=== PATIENT | female | born 1995 | race Two or more races ===

== ENCOUNTER → 2020-06-30 | Outpatient (CLI) | payer BC ==
[~2020-06-30] MED LIST: DOCU100C16 PO; IBUP80TA PO; PRENTAB53 PO; PROC1CRE5 TOP
[2020-06-30 13:27] LABS: HEMATOCRIT 34.4 % (36.0-47.0); HEMOGLOBIN 11.4 g/dl (12.0-15.5); MEAN CORPUSCULAR HEMOGLOBIN 30.4 pg (27.0-33.0); MEAN CORPUSCULAR HGB CONC 33.1 g/dl (32.0-36.5); MEAN CORPUSCULAR VOLUME 91.7 fl (80.0-96.0); PLATELET COUNT, AUTOMATED 229 10^3/uL (150-450); RED BLOOD COUNT 3.75 10^6/uL (4.00-5.40); WHITE BLOOD COUNT 5.8 10^3/uL (4.0-10.0)
== END ==
LOC: M PLALAB 10:15
PROVIDERS: ATTEND Advanced Practice Midwife
DX: Z34.83 Encounter for supervision of other normal pregnancy, third trimester (principal); Z3A.00 Weeks of gestation of pregnancy not specified

== ENCOUNTER 2020-07-22 07:14 | Inpatient (IN) | payer BC ==
[2020-07-22] VITALS (19 sets, daily range): BP systolic 122–154; BP diastolic 69–90
[~2020-07-22] VITALS: Ht 154.9 cm; Wt 74.9 kg
[2020-07-22] MEDS ORDERED: PRENTAB53 PO (07:28)
[2020-07-22] MEDS ORDERED: LACTATED RINGER'S 1000 ML IV STA (08:30)
[2020-07-22] MEDS ORDERED: PENICILLIN G POTASSIUM IV 5 MU in D5W MINI-BAG PLUS 100 ML IV STA ×2 (08:30→09:41)
[2020-07-22 09:27] LABS: HEMOGLOBIN 12.2 g/dl (12.0-15.5); MEAN CORPUSCULAR HEMOGLOBIN 29.5 pg (27.0-33.0); MEAN CORPUSCULAR VOLUME 89.6 fl (80.0-96.0); PLATELET COUNT, AUTOMATED 221 10^3/uL (150-450); RED BLOOD COUNT 4.13 10^6/uL (4.00-5.40)
--- NOTE | 2020-07-22 09:47 | HPEPDOC ---
Obstetrical History & Physical General Date of Admission 07/22/2020 History of Present Illness Chief Complaint: Contractions, term (mild, irregular), LOF, term (Clear fluid started leaking at 2300) Information Provided By: Patient Age: 25 : 1 Term: 0 Pre-term: 0 Abortions: 0 Livin Care Care: Good Care Dating Final EDC: Jul 26, 2020 Final EDC by: 1st trimester (US) LMP: Oct 12, 2019 1st Trimester Date: Dec 17, 2019 Weeks + Days: 8.2 EGA at Admission: 39.3 Antepartum Course Height (inches): 61 Pre- weight (lbs.): 141 Admission Weight (lbs.): 165 Change in Weight (lbs.): 24 Past Medical History Past Obstetrical History : Past Obstetrical History: Primgravida Complications: No (transfer of care from [place] @ 33 weeks) 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 Past Medical History Medical History Denies Surgical History: Denies/None Family History Significant Family History: Diabetes (Father and Mother), Hypertension (Father) Social History Marital Status: Family situation: Spouse/partner home Psychosocial History: No pertinent psych hx * Smoker: non-smoker Alcohol: Denies Drugs: denies Imunizations Tdap status: current Allergies Coded Allergies: No Known Allergies (Verified Allergy, Unknown, 07/22/20) Medications Scheduled Vit,Calc76/Iron/Folic (Prenatabs Rx Tablet) 1 Each Tablet, 1 TAB PO DAILY Physical Examination Physical Examination GENERAL: Alert and oriented times three. BREAST: . ABDOMEN: Gravid and non-tender to touch. FETUS: Is vertex (VTX) by sterile vaginal examination (SVE), fetus is vertex (VTX) by [place]. EFW 7-7.5lbs by Ambrosio. HEART RATE: Regular rate and rhythm. LUNGS: Clear to auscultation (CTA). EXTREMITIES: No edema. No clonus. Deep tendon reflexes (DTRs) + 2. Vital Signs/I&O Vital Signs Date Time Temp Pulse Resp B/P (MAP) Pulse Ox O2 Delivery O2 Flow Rate FiO2 07/22/20 07:35 98.7 100 18 144/90 (108) Pertinent Laboratoy Data Blood Type: B+ RBC Antibody Screen: Negative HIV: Negative Hepatitis B: Negative Rapid Plasma Reagin: Nonreactive Rubella: Immune Varicella: Unknown Chlamydia/Gonorrhea: Unknown (Deferred by previous practice due to risk based screening) Group B Streptococcus: Positive Cystic Fibrosis: Negative Glucose Tolerance Test: 127 Diag/Inter Therapy Hemoglobin Electrophoresis: AA Anatomy Ultrasound Ultrasound Date: Mar 11, 2020 Placenta Location: Fundal Normal Anatomy: Yes Placenta Previa: No Steroid Therapy Steroid Therapy: No Vaginal Examination Dilation: 1cm Effacement: 70% Station: -2 Cervical Consistency: Soft Cervical Position: Posterior Presentation: Cephalic presentation Position: Vertex (occiput) Assessment Heart Rate (FHR): 140 Variability: Moderate Accelerations: Positive Decelerations: None Tocometer Contractions: Yes Frequency: irregular, less than 9 min/apart Duration: greater than 60 seconds Strength: palpated as mild Multi-drug resistant Organism: No history of MDRO Assessment/Plan Assessment Janette is a 25-year-old (G)1 para (P)0-0-0-0 at 39+3 weeks by 8-week ultrasound. Presents to Labor and Delivery (L&D) with spontaneous PROM at 2300 on 07/21/20, mild, irregular contractions, and a moderate amount of bloody show. Sterile speculum exam showed a moderate amount of bloody show, no pooling or fluid leaking from cervix on valsalva. Ferning was positive on slide. SVE 1-2//-2 by REJI Lopez with informed consent. 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 Diet: Clear liquid. Group B Streptococcus (GBS) postive, penicillin in labor for prophylaxis. Labs and intravenous (IV) per unit protocol. Counseled on Pitocin and induction of labor (IOL). Plans for an unmedicated , but open to epidural if needed. Lactated Ringers (LR): Bolus 500 mL, then saline lock. Anticipate normal spontaneous delivery (). C-S as appropriate. Rita Raymundo CNM Jul 22, 2020 08:56
--- NOTE | 2020-07-22 11:06 | IPNPDOC ---
Text Note Date of Service The patient was seen on 07/22/20. NOTE Progress Contractions becoming less regular. Cat I tracing GBS prophylaxis has started. Start pitocin augmentation VS,Fishbone, I+O VS, Fishbone, I+O Laboratory Tests 07/22/20 09:11 Vital Signs Date Time Temp Pulse Resp B/P (MAP) Pulse Ox O2 Delivery O2 Flow Rate FiO2 07/22/20 07:35 98.7 100 18 144/90 (108) Rita Raymundo CNM Jul 22, 2020 11:06
[2020-07-22] MEDS ORDERED: OXYTOCIN DRIP 30 UNITS in IV 1 EA IV SCH (11:15)
[2020-07-22] MEDS ORDERED: PENICILLIN G POTASSIUM IV 2.5 MU in IV 1 EA IV SCH (12:30)
[2020-07-22] MEDS: LR 1,000 ML IV SCH ×2 (13:19→17:20)
[2020-07-22] MEDS: PENICILLIN G POTASSIUM IV 2.5 MU in IV 1 EA IV SCH ×3 (13:55→23:08)
--- NOTE | 2020-07-22 15:20 | IPNPDOC ---
Text Note Date of Service The patient was seen on 07/22/20. NOTE Patient reports feeling more intense and frequent contractions. Some dark b loody show noted by patient. Pitocin running at 4mu/min, Penicillin dose #2 infusing. Category 1 FHT, FHR 145bpm. UC every 4-5min, 90-110sec. mild on palpation. SVE 1-2/80/-2, posterior, soft by REJI Hemphill; bloody show noted on gloves. Risks, benefits, and alternatives to cooks catheter discussed and informed consent received for placement. Cook's catheter placed Uterine 60mL and Vaginal 40mL of NS. Anticipate vaginal delivery. VS,Fishbone, I+O VS, Fishbone, I+O Laboratory Tests 07/22/20 09:11 Vital Signs Date Time Temp Pulse Resp B/P (MAP) Pulse Ox O2 Delivery O2 Flow Rate FiO2 07/22/20 14:23 93 124/73 (90) 07/22/20 13:53 98.6 16 Rita Raymundo CNM Jul 22, 2020 15:20
[2020-07-22] MEDS ORDERED: FENTANYL 2MCG/ML ROPIVACAINE 0.2% IN 0.9% NACL 100ML IVBAG As Ordered ONE (16:52)
--- NOTE | 2020-07-22 18:27 | IPNPDOC ---
Text Note Date of Service The patient was seen on 07/22/20. NOTE Inpatient Pain well controlled with epidural. Pitocin at 10mu/min. Cat 1 FHT, 145bpm baseline. UC every 3-4 min., 60-90 seconds long, palpate moderate SVE 5-6/90/-1, soft, anterior by REJI Lopez. AROM for moderate amount of clear fluid. Continue with pitocin. Anticipate vaginal delivery. VS,Fishbone, I+O VS, Fishbone, I+O Laboratory Tests 07/22/20 09:11 Vital Signs Date Time Temp Pulse Resp B/P (MAP) Pulse Ox O2 Delivery O2 Flow Rate FiO2 07/22/20 14:23 93 124/73 (90) 07/22/20 13:53 98.6 16 Rita Raymundo CNM Jul 22, 2020 18:27
[2020-07-22] MEDS ORDERED: NALOXONE INJ 0.4MG/1ML VIAL (J2310 PER 1MG) IV PRN (18:30)
[2020-07-22] MEDS ORDERED: FENTANYL/ROPIVACAINE/NACL BAG 100 ML EPIDURAL SCH (18:30)
[2020-07-22] MEDS ORDERED: EPIDURAL COMMENT XX SCH (18:30)
[2020-07-22] MEDS ORDERED: EPIDURAL/PCA KEYS XX PRN (18:30)
[2020-07-22] MEDS ORDERED: diphenhydrAMINE 50MG/ML VIAL (J1200) IV PRN (18:30)
[2020-07-22] MEDS ORDERED: LACTATED RINGER'S 1000 ML IV PRN (18:30)
[2020-07-22] MEDS ORDERED: ONDANSETRON 4MG/2ML VIAL IV PRN (18:30)
[2020-07-22] MEDS ORDERED: REFRIGERATOR IV KEYS XX PRN (18:30)
[2020-07-22] MEDS ORDERED: ePHEDrine SULFATE 25 MG/5 ML(5MG/ML) SYRINGE IV PRN (18:30)
[2020-07-22] MEDS ORDERED: **PENDING PCN ENTRY XX SCH (21:00)
[2020-07-22 23:34] LABS: HEMATOCRIT 36.3 % (36.0-47.0); HEMOGLOBIN 11.8 g/dl (12.0-15.5); MEAN CORPUSCULAR HEMOGLOBIN 29.6 pg (27.0-33.0); MEAN CORPUSCULAR HGB CONC 32.5 g/dl (32.0-36.5); PLATELET COUNT, AUTOMATED 213 10^3/uL (150-450); RED BLOOD COUNT 3.99 10^6/uL (4.00-5.40); WHITE BLOOD COUNT 9.3 10^3/uL (4.0-10.0)
[2020-07-23] LABS: ALT/SGPT 20 U/L (12-78); BILIRUBIN,TOTAL 0.2 MG/DL (0.2-1.0); CREATININE FOR GFR 0.64 MG/DL (0.55-1.30); GLOMERULAR FILTRATION RATE > 60.0 (>60); LDH LACTATE DEHYDROGENASE 190 U/L (84-246); URIC ACID 4.2 MG/DL (2.6-6.0)
[2020-07-23 00:06] VITALS: BP 153/77
[2020-07-23 00:21] VITALS: BP 144/75
[2020-07-23] MEDS ORDERED: OXYTOCIN DRIP 30 UNITS in IV 1 EA IV SCH (00:33)
[2020-07-23 00:36] VITALS: BP 141/90
[2020-07-23] MEDS ORDERED: IBUPROFEN 600MG TAB PO PRN (00:45)
[2020-07-23] MEDS ORDERED: IBUPROFEN 800 MG TAB PO PRN (00:45)
[2020-07-23] MEDS ORDERED: METHYLERGONOVINE MALEATE 0.2 MG TAB PO PRN (00:45)
[2020-07-23] MEDS ORDERED: MOM 30ML SUSPENSION UDC PO PRN (00:45)
[2020-07-23] MEDS ORDERED: MEASLES,MUMPS,RUBELLA VACCINE INJ (MMR-II) (90707) SC SCH (00:45)
[2020-07-23] MEDS ORDERED: RHOGAM 300 MCG (1500 IU) INJ (J2790) IM SCH (00:45)
[2020-07-23] MEDS ORDERED: DOCUSATE SODIUM 100 MG CAP PO PRN (00:45)
[2020-07-23] MEDS ORDERED: ACETAMINOPHEN TAB 650MG DOSE (2X325MG) PO PRN (00:45)
[2020-07-23] MEDS ORDERED: DIBUCAINE 1% OINTMENT 30GM TOP PRN (00:45)
[2020-07-23] MEDS ORDERED: ACETAMINOPHEN 500 MG TAB PO PRN (00:45)
--- NOTE | 2020-07-23 00:50 | DNPDOC ---
[facility] Delivery Note Delivery Note DATE OF DELIVERY: 07/22/2020 PREDELIVERY DIAGNOSIS: 39-3/7 weeks' gestation and PROM. POST DELIVERY DIAGNOSIS: Delivered. PROCEDURE: Spontaneous vaginal delivery. PROVIDER: MAYRA Huntley/ REJI Hemphill ANESTHESIA: Epidural. ESTIMATED BLOOD LOSS: 400 mL. FINDINGS: 7 pound 3 ounce, 3270g, Male infant, Score 8/9. DELIVERY SUMMARY: Patient is a 25-year-old 1 now para 1-0-0-1 who was admitted to labor and delivery for PROM at 2300 on 07/21/20. After no progress, Pitocin was started and cook's catheter was placed with positive effects. Epid ural was placed for labor pain management. Progressed well and was then AROM at 1815 for moderate amount of clear fluid. Full dilation and +3 station was achieved at 2240 and she began to push shortly after. Blood pressures were noted to be mildly elevated and pre-eclampsia labs were done while pushing. Viable male infant was born at 2351, IRVIN with right compound arm that released spontaneously. placed on maternal abdomen and delayed cord clamping until pulsations stopped, cord clamped x2 and cut by SN, parents declined. Placenta delivered spontaneously at 2356, kraig mechanism, after gentle cord traction, uterine guarding, and small maternal pushing efforts. IV Pitocin bolus started placenta was delivered, fundal massage implemented, and fundus firmed to U-2, small rubra lochia. Perineum was examined and a 2nd degree laceration was noted and repaired with 3-0 Vicryl Rapide. Cervix and vaginal ramachandran examined and no lacerations were noted. Sharps, sponges, and instruments counted and correct. EBL 400mL. Mother and both left in stable condition. Preeclamptic labs WNL. Rita Raymundo CNM Jul 23, 2020 00:50
[2020-07-23 00:51] VITALS: BP 146/99
[2020-07-23 06:17] VITALS: BP 144/73
--- NOTE | 2020-07-23 07:18 | IPNPDOC ---
Text Note Date of Service The patient was seen on 07/23/20. NOTE Inpatient Afebrile, BP ranging in the 140s/70s-80s. Pre-eclampsia panel ordered for this AM, awaiting results. is going well. Fundus firm, midline at U-1, small lochia. Passing flatus and voiding independently. Able to move around the room without difficulty. Pain well controlled with Tylenol and Motrin. Plan to discharge home on Saturday. VS,Fishbone, I+O VS, Fishbone, I+O Laboratory Tests 07/22/20 09:11 07/22/20 23:30 Vital Signs Date Time Temp Pulse Resp B/P (MAP) Pulse Ox O2 Delivery O2 Flow Rate FiO2 07/23/20 06:17 97.7 112 18 144/73 (96) I&O- Last 24 Hours up to 6 AM 07/23/20 06:00 Intake Total 2110 ml Output Total 1400 ml Balance 710 ml Rita Raymundo CNM Jul 23, 2020 07:18
[2020-07-23 08:07] LABS: HEMATOCRIT 29.9 % (36.0-47.0); HEMOGLOBIN 9.9 g/dl (12.0-15.5); MEAN CORPUSCULAR HGB CONC 33.1 g/dl (32.0-36.5); MEAN CORPUSCULAR VOLUME 90.6 fl (80.0-96.0); PLATELET COUNT, AUTOMATED 187 10^3/uL (150-450); WHITE BLOOD COUNT 11.2 10^3/uL (4.0-10.0)
[2020-07-23 08:21] LABS: ALT/SGPT 18 U/L (12-78); BILIRUBIN,TOTAL 0.2 MG/DL (0.2-1.0); GLOMERULAR FILTRATION RATE > 60.0 (>60); LDH LACTATE DEHYDROGENASE 192 U/L (84-246); URIC ACID 4.8 MG/DL (2.6-6.0)
[2020-07-23] MEDS: PRENATAL VITAMINS CHEWABLE TABLET PO SCH (09:21)
[2020-07-23 17:58] VITALS: BP 149/86
[2020-07-23] MEDS ORDERED: ANUSOL HC CREAM 30GM TOP PRN (20:15)
[2020-07-24 06:07] VITALS: BP 138/84
[2020-07-24] MEDS: PRENATAL VITAMINS CHEWABLE TABLET PO SCH (07:53)
--- NOTE | 2020-07-24 14:15 | IPNPDOC ---
Progress Note Date of Service: Jul 24, 2020 Day#: 2 Progress Note PPD 2 SUBJECT: Janette is a 25yo [id number] s/p uncomplicated at 39w3d after presenting with PROM and having augmentation of labor, delivering on 07/22 at 23:51, doing well day # 2. She has been ambulating, voiding spontaneously without issue and tolerating regular diet. Breast feeding without issue. Reports lochia is like a normal period. No ROSS/vision changes/abdominal pain. OBJECTIVE: VITAL SIGNS: BP normal to mild range, afebrile. Alert and oriented times three. Abdomen: Fundus firm at U-2. Soft, NTTP. Extremities: no pain with palpation of calves ASSESSMENT: Janette is a 25yo [id number] s/p uncomplicated at 39w3d after presenting with PROM and having augmentation of labor, delivering on 07/22 at 23:51, doing well day # 2. BPs have been normal to mild range since delivery (2 lab panels were done for pre-E and both benign). She is afebrile, hemodynamically stable with no evidence of infection. PLAN: Routine PP care Regular diet Tylenol and Motrin for pain Undecided on contraception Discussed and encouraged Plan to discharge home tomorrow Keke Mock MD VS, I&O, 24H, Fishbone Vital Signs/I&O Vital Signs Date Time Temp Pulse Resp B/P (MAP) Pulse Ox O2 Delivery O2 Flow Rate FiO2 07/24/20 06:07 96.6 87 14 138/84 (102) 98 Room Air Keke Mock MD Jul 24, 2020 14:15
[2020-07-24 17:58] VITALS: BP 140/82
[2020-07-25 06:00] VITALS: BP 135/87
--- NOTE | 2020-07-25 06:37 | IPNPDOC ---
Progress Note Date of Service: Jul 25, 2020 Day#: 3 Progress Note PPD 3 SUBJECT: Jantete is a 25yo [id number] s/p uncomplicated at 39w3d after presenting with PROM and having augmentation of labor, delivering on 07/22 at 23:51, doing well day # 3. She has been ambulating, voiding spontaneously without issue and tolerating regular diet. Breast feeding and supplementing with formula without issue. Reports lochia is like a normal period. No ROSS/vision changes/abdominal pain. OBJECTIVE: VITAL SIGNS: BP normal to mild range, afebrile. Alert and oriented times three. Abdomen: Fundus firm at U-2. Soft, NTTP. Extremities: no pain with palpation of calves ASSESSMENT: Janette is a 25yo [id number] s/p uncomplicated at 39w3d after presenting with PROM and having augmentation of labor, delivering on 07/22 at 23:51, doing well day # 3. BPs have been normal to mild range since delivery (2 lab panels were done for pre-E and both benign). She is afebrile, hemodynamically stable with no evidence of infection. PLAN: Discharge to home Regular diet Tylenol and Motrin for pain Undecided on contraception Discussed and encouraged Return precautions discussed at length, she will need bp check in clinic in 2 days Keke Mock MD VS, I&O, 24H, Fishbone Vital Signs/I&O Vital Signs Date Time Temp Pulse Resp B/P (MAP) Pulse Ox O2 Delivery O2 Flow Rate FiO2 07/25/20 06:00 98.9 92 18 135/87 (103) 07/24/20 06:07 98 Room Air Keke Mock MD Jul 25, 2020 06:37
[2020-07-25] MEDS ORDERED: PROC1CRE5 TOP (06:40)
[2020-07-25] MEDS ORDERED: DOCU100C16 PO (06:40)
[2020-07-25] MEDS ORDERED: IBUP80TA PO (06:40)
--- NOTE | 2020-07-25 06:43 | DS.PDOC ---
Discharge Summary General Date of Admission Jul 22, 2020 at 08:33 Date of Discharge Jul 25, 2020 Discharge Summary PROCEDURES PERFORMED DURING STAY: spontaneous vaginal delivery ADMITTING DIAGNOSES: 1. PROM at term DISCHARGE DIAGNOSES: 1. PROM at term, delivered COMPLICATIONS/CHIEF COMPLAINT: Labor Check. HISTORY OF PRESENT ILLNESS/HOSPITAL COURSE: Janette is a 25yo [id number] s/p uncomplicated at 39w3d after presenting with PROM and having augmentation of labor, delivering on 07/22 at 23:51, doing well day # 3. BPs have been normal to mild range since delivery (2 lab panels were done for pre-E and both benign). At time of discharge she is afebril e, hemodynamically stable with no evidence of infection. DISCHARGE MEDICATIONS: Please see below. ALLERGIES: Please see below. PHYSICAL EXAMINATION ON DISCHARGE: VITAL SIGNS: BP normal to mild range, afebrile. Alert and oriented times three. Abdomen: Fundus firm at U-2. Soft, NTTP. Extremities: no pain with palpation of calves LABORATORY DATA: Please see below. DIET: regular DISPOSITION: home DISCHARGE PLAN/INSTRUCTIONS: Discharge to home Regular diet Tylenol and Motrin for pain Undecided on contraception Discussed and encouraged Return precautions discussed at length, she will need bp check in clinic in 2 days. DISCHARGE CONDITION: Stable TIME SPENT ON DISCHARGE: Greater than 20 minutes. Keke Mock MD Vital Signs/I&Os Vital Signs Date Time Temp Pulse Resp B/P (MAP) Pulse Ox O2 Delivery O2 Flow Rate FiO2 07/25/20 06:00 98.9 92 18 135/87 (103) 07/24/20 06:07 98 Room Air Discharge Medications Scheduled Vit,Calc76/Iron/Folic (Prenatabs Rx Tablet) 1 Each Tablet, 1 TAB PO DAILY, (Reported) Scheduled PRN Docusate Sodium (Docusate Sodium) 100 Mg Capsule, 100 MG PO QHSP PRN for CONSTIPATION Hydrocortisone (Proctozone-Hc) 30 Gm Crm.pe.eber, 1 DOSE TOP Q4HP PRN for HEMORRHOIDS Ibuprofen (Ibuprofen) 800 Mg Tablet, 800 MG PO Q8HP PRN for PAIN LEVEL 6-10 Allergies Coded Allergies: No Known Allergies (Verified Allergy, Unknown, 07/22/20) Keke Mock MD Jul 25, 2020 06:43
[2020-07-25] MEDS: PRENATAL VITAMINS CHEWABLE TABLET PO SCH (10:50)
== END 2020-07-25 14:15 | disposition home or self-care (01) | DRG 560 ==
LOC: M LDO 07:14 → M LDI 08:33 → M OBS 07-23 02:47
PROVIDERS: ADMIT Specialist; ATTEND Advanced Practice Midwife
PROC: 10E0XZZ Delivery of Products of Conception, External Approach (ICD-10-PCS; principal; 2020-07-22)
PROC: 0KQM0ZZ Repair Perineum Muscle, Open Approach (ICD-10-PCS; 2020-07-22)
DX: O42.02 Full-term premature rupture of membranes, onset of labor within 24 hours of rupture (principal); O32.6XX0 Maternal care for compound presentation, not applicable or unspecified; Z3A.39 39 weeks gestation of pregnancy; O70.1 Second degree perineal laceration during delivery; Z37.0 Single live birth

== ENCOUNTER → 2020-08-02 | Outpatient (REF) | payer BC ==
[2020-08-02 15:22] LABS: HEMATOCRIT 43.2 % (36.0-47.0); HEMOGLOBIN 13.8 g/dl (12.0-15.5); MEAN CORPUSCULAR HEMOGLOBIN 29.6 pg (27.0-33.0); MEAN CORPUSCULAR HGB CONC 31.9 g/dl (32.0-36.5); MEAN CORPUSCULAR VOLUME 92.7 fl (80.0-96.0); PLATELET COUNT, AUTOMATED 414 10^3/uL (150-450); RED BLOOD COUNT 4.66 10^6/uL (4.00-5.40); WHITE BLOOD COUNT 8.7 10^3/uL (4.0-10.0)
[2020-08-02 15:47] LABS: CREATININE,RANDOM URINE 38.2 MG/DL; TOTAL PROTEIN,RANDOM URINE 13.8 MG/DL (0.0-12.0)
[2020-08-02 15:48] LABS: ALBUMIN 3.4 GM/DL (3.2-5.2); ALT/SGPT 60 U/L (12-78); BILIRUBIN,TOTAL 0.2 MG/DL (0.2-1.0); BLOOD UREA NITROGEN 11 MG/DL (7-18); CALCIUM LEVEL 9.3 MG/DL (8.5-10.1); CARBON DIOXIDE LEVEL 29 MEQ/L (21-32); CHLORIDE LEVEL 106 MEQ/L (98-107); CREATININE FOR GFR 0.62 MG/DL (0.55-1.30); GLOMERULAR FILTRATION RATE > 60.0 (>60); GLUCOSE, FASTING 81 MG/DL (70-100); LDH LACTATE DEHYDROGENASE 255 U/L (84-246); POTASSIUM SERUM 4.5 MEQ/L (3.5-5.1); SODIUM LEVEL 140 MEQ/L (136-145); TOTAL PROTEIN 7.5 GM/DL (6.4-8.2); URIC ACID 6.4 MG/DL (2.6-6.0)
== END ==
LOC: M PLALAB 11:56
PROVIDERS: ATTEND Obstetrics & Gynecology
DX: O16.5 Unspecified maternal hypertension, complicating the puerperium (principal)

== ENCOUNTER → 2020-09-27 | Outpatient (REF) | payer SELFPAY | LOC: EDSTATUS 10:45 → M LABSMTC 11:09 | PROVIDERS: ATTEND Pediatrics | DX: Z20.828 Contact with and (suspected) exposure to other viral communicable diseases (principal) ==

== ENCOUNTER → 2020-10-13 | Outpatient (REF) | payer BC ==
[2020-10-13 14:21] LABS: BASO % 0.8 % (0.0-1.0); EOS % 0.6 % (0.0-3.0); HEMATOCRIT 39.9 % (36.0-47.0); HEMOGLOBIN 12.7 g/dl (12.0-15.5); LYMPH # 1.7 10^3/uL (1.5-5.0); LYMPH % 35.2 % (24.0-44.0); MEAN CORPUSCULAR HEMOGLOBIN 28.2 pg (27.0-33.0); MEAN CORPUSCULAR HGB CONC 31.8 g/dl (32.0-36.5); MEAN CORPUSCULAR VOLUME 88.7 fl (80.0-96.0); MONO # 0.3 10^3/uL (0.0-0.8); MONO % 5.3 % (0.0-5.0); NEUTROPHILS # 2.7 10^3/uL (1.5-8.5); NEUTROPHILS % 57.9 % (36.0-66.0); PLATELET COUNT, AUTOMATED 349 10^3/uL (150-450); WHITE BLOOD COUNT 4.7 10^3/uL (4.0-10.0)
[2020-10-13 14:30] LABS: ALBUMIN 4.5 GM/DL (3.2-5.2); ALT/SGPT 86 U/L (12-78); BILIRUBIN,TOTAL 0.4 MG/DL (0.2-1.0); BLOOD UREA NITROGEN 11 MG/DL (7-18); CALCIUM LEVEL 9.7 MG/DL (8.5-10.1); CARBON DIOXIDE LEVEL 32 MEQ/L (21-32); CHLORIDE LEVEL 106 MEQ/L (98-107); CHOLESTEROL LEVEL 166 MG/DL (<200); CHOLESTEROL RISK RATIO 2.813 (<5); CREATININE FOR GFR 0.65 MG/DL (0.55-1.30); FERRITIN 24 NG/ML (8-252); GLOMERULAR FILTRATION RATE > 60.0 (>60); GLUCOSE, FASTING 84 MG/DL (70-100); HDL CHOLESTEROL 59 MG/DL (>40); IRON (FE) 47 UG/DL (50-170); LDL CHOLESTEROL 98 MG/DL (<100); NON-HDL-C 107 MG/DL; SODIUM LEVEL 141 MEQ/L (136-145); TOTAL PROTEIN 7.7 GM/DL (6.4-8.2); TRIGLYCERIDES LEVEL 44 MG/DL (<150)
[2020-10-13 14:35] LABS: TOTAL 25(OH) VITAMIN D 33.5 NG/ML (30.0-100.0)
== END ==
LOC: M SFHCPLAZ 10:28
PROVIDERS: ATTEND Physician Assistant Medical
DX: E55.9 Vitamin D deficiency, unspecified (principal); D50.9 Iron deficiency anemia, unspecified; Z00.00 Encounter for general adult medical examination without abnormal findings

== ENCOUNTER → 2020-10-29 | Outpatient (CLI) | payer SELFPAY | LOC: M LABSMTC 11:35 | PROVIDERS: ATTEND Pediatrics | DX: Z20.822 Contact with and (suspected) exposure to COVID-19 (principal) ==

== ENCOUNTER → 2021-02-16 | Outpatient (CLI) | payer SELFPAY | LOC: M LABSMTC 11:34 | PROVIDERS: ATTEND Pediatrics | DX: Z20.822 Contact with and (suspected) exposure to COVID-19 (principal) ==